=== PATIENT | male | born 1995 | race Caucasian/White ===

== ENCOUNTER 2020-08-12 05:21 | Day surgery (SDC) | payer OTHER, SELFPAY ==
[2020-08-11 08:36] VITALS: BMI 20.9
[2020-08-12] VITALS (8 sets, daily range): BP systolic 107–128; BP diastolic 65–97; PULSE 69–88; RESP 16; TEMP 36.5–36.8; O2SAT 94–99; BMI 22.1
[2020-08-12] MEDS: Lactated Ringers 1,000 ML 100 ML IV (05:58)
--- NOTE | 2020-08-12 07:15 | RAD_ITS ---
STUDY: X-RAY - RIGHT CLAVICLE REASON FOR EXAM: Male, 25 years old. Fracture repair TECHNIQUE: 5 intraoperative view(s) of the clavicle. COMPARISON: None. FINDINGS: Intraoperative imaging provided for ORIF of the right mid clavicular fracture. RAD/Clavicle IMPRESSION: Intraoperative imaging provided for ORIF of the right mid clavicular fracture. Electronically Signed: Tang Briones, at 9:44 EDT , Service support ,
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
[2020-08-12] MEDS: Cefazolin 2 GM in 0.9% Normal Saline 100 ML IV (07:30)
[2020-08-12] MEDS: Bupiv/Epi 0.25% 30 ML Vial (09:00)
--- NOTE | 2020-08-12 09:07 | DCINST_ITS ---
Discharge Diet: No Restrictions Additional Instructions: Must keep shoulder clean. Keep dressing on 72 hours then may remove prior to first shower at that point may shower daily with warm water and antibacterial soap over incision however do not submerge in tub pool or other. There are white Steri-Strips over incision these should be left on after outer dressing is removed and it is okay to get these wet after the initial 72 hours. They will fall off on their own replace with light dressing if needed for drainage. Keep covered if not and and a clean area must keep incision clean as possible to avoid infection. May remove sling as it is for comfort only encourage shoulder and arm range of motion immediately however no weight to the right upper extremity no pushing or pulling with right upper extremity. Call with any questions or concerns only take pain medication as prescribed do not mix pain medications with medications you have had previously. Okay to take Tylenol and or [id number] NSAID in addition to narcotic. Narcotic can be addictive and abusive do not mix with alcohol and only take as prescribed. Follow-up in my office in 2 weeks for wound check or sooner if any questions or concerns. Allergies/Adverse Reactions: Allergies No Known Allergies Allergy (Verified 08/12/20 05:40) Medications to take at Discharge Naproxen Sodium [Aleve] 220 mg PO PRN PRN 08/11/20 Oxycodone HCl/Acetaminophen [Percocet 5/325] 1 tab PO Q6H PRN PRN 08/11/20 Acetaminophen [Tylenol Extra Strength] 1,000 mg PO Q6H PRN #50 tab 08/12/20 Cephalexin [Keflex] 1,000 mg PO Q8 #4 cap 08/12/20 Oxycodone [Oxyir] 5 mg PO Q4H PRN PRN #40 tablet 08/12/20 The following prescriptions were given: Cephalexin [Keflex] 1,000 mg PO Q8 #4 cap Transmission Status: Pending to [facility] Oxycodone [Oxyir] 5 mg PO Q4H PRN PRN #40 tablet PRN Reason: Pain Score 4-5/10 Transmission Status: Sent to [facility] Acetaminophen [Tylenol Extra Strength] 1,000 mg PO Q6H PRN #50 tab Transmission Status: Pending to [facility] Primary Care Physician: Hernandez Clemons III, MD [Primary Care Provider] - Test Results: Test results from this visit will be discussed in further detail at your follow- up appointment, if applicable. Please Follow Up With: Dale Zuniga DO - 2 weeks
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
[2020-08-12] MEDS: Cefazolin 1 GM/50 ML BAG IV (10:42)
== END 2020-08-12 11:47 | disposition home or self-care (01) ==
LOC: SDC 05:22 → AC 05:24
PROVIDERS: PCP Family Medicine; Referring Provider Orthopaedic Surgery; Visit Provider Orthopaedic Surgery
PROC: (CPT 23515; principal; 2020-08-12 06:55)
DX: S42.021A Displaced fracture of shaft of right clavicle, initial encounter for closed fracture (principal); V29.88XA Motorcycle rider (driver) (passenger) injured in other specified transport accidents, initial encounter; Y93.9 Activity, unspecified; Y92.488 Other paved roadways as the place of occurrence of the external cause
CPT/HCPCS: 00450; 23515; 64415; 73000; 76000; C1713; J7120; J2405

== ENCOUNTER 2020-09-15 15:32 | Outpatient (RCR) | payer OTHER, SELFPAY ==
[2020-08-27 08:09] VITALS: BMI 22.1
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
--- NOTE | 2020-11-25 10:01 | HP.PT.NRP ---
MAYRA ALEMAN NATALEE was seen in my office for initial evaluation on 09/15/20. The following Plan of Care was established for this patient: Initial Frequency: 1x/Week Patient/Client Instruction: Educate patient on: Benefits of Fitness Program Therapeutic Exercise to Include: Strength training, Endurance training, Coordination, Body mechanics, Postural training, Flexibilty training, Neuromotor development, Scapular Strength/Stabilization For the Purpose of:: To improve muscle performance and motor function This patient was last seen in our office . Pertinent comments regarding their Physical therapy will appear below: Patient has not returned since IE. Discharge and return to [employer] for further evaluation. At this point I will be discontinuing this patient from physical therapy. I would be happy to see this patient again in the future if found appropriate by the physician. Thank you! ROLF GregorioT
== END 2020-09-15 19:00 | disposition home or self-care (01) ==
LOC: PT 15:32
PROVIDERS: PCP Family Medicine; Referring Provider Orthopaedic Surgery; Visit Provider Orthopaedic Surgery
DX: S42.021D Displaced fracture of shaft of right clavicle, subsequent encounter for fracture with routine healing (principal)
CPT/HCPCS: 97161

== ENCOUNTER → 2020-10-28 09:06 | Outpatient (CLI) | payer OTHER, SELFPAY ==
[2020-09-08 09:53] VITALS: BMI 22.1
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
== END ==
PROVIDERS: PCP Family Medicine; Visit Provider Orthopaedic Surgery
DX: Z47.89 Encounter for other orthopedic aftercare (principal)
CPT/HCPCS: 73000